=== PATIENT | male | born 1940 | race Caucasian/White ===

== ENCOUNTER → 2016-07-20 | Outpatient (CLI) | payer OTHER | LOC: BMCIMAGING 08:49 | PROVIDERS: ATTEND Family Medicine | DX: K59.00 Constipation, unspecified (principal) ==

== ENCOUNTER → 2016-09-24 | Outpatient (CLI) | payer OTHER ==
[~2016-09-24] MED LIST: IOPAMIDOL (ISOVUE 370) 100 ML BTL IV ONE
[2016-09-24 11:11] LABS: CREATININE 1.2 mg/dL (0.7-1.3)
== END ==
LOC: FIMAGING 10:33
DX: I77.810 Thoracic aortic ectasia (principal); R05 Cough
CPT/HCPCS: 71275; Q9967

== ENCOUNTER → 2018-03-09 | Outpatient (CLI) | payer OTHER | DX: R13.14 Dysphagia, pharyngoesophageal phase (principal); R68.2 Dry mouth, unspecified | CPT/HCPCS: 74230; 92611; G8996; G8997; G8998 ==

== ENCOUNTER 2018-07-13 23:46 | Emergency (ER) | payer OTHER ==
[2018-07-14] MEDS ORDERED: HYDROmorphONE/DILAUDID 1 MG/ML INJ IVP ONE (00:15)
[2018-07-14] MEDS ORDERED: NS 1,000 ML IV ONE (00:15)
[2018-07-14] MEDS ORDERED: ONDANSETRON 4 MG/2 ML VIAL IVP ONE (00:16)
--- NOTE | 2018-07-14 00:20 | EDPHY ---
H & P Stated Complaint: G-tube placement for ALS, retunrs for post-op pain Time Seen by Provider: 07/14/18 00:06 HPI/ROS: Chief Complaint: Abdominal pain HPI: 77-year-old male with a history of ALS had a G-tube placed at [facility] yesterday. Patient was discharged home this morning. Patient states he is feeling well. This afternoon he felt constipated and had a large bowel movement after a lot of straining. He then developed severe pain around his G- tube site. Pain has persisted. No nausea or vomiting. No relief with oral analgesia. No discharge or bleeding from the site. ROS: 10 systems were reviewed and were negative except those elements noted in the HPI. PMH: ALS Social History: No smoking, no alcohol, no recreational drug use Family History: non-contributory Physical Exam: Gen: Awake, Alert, No Distress HEENT: Nose: no rhinorrhea Eyes: PERRLA, EOMI Mouth: Moist mucosa Neck: Supple, no JVD Chest: nontender, lungs clear to auscultation Heart: S1, S2 normal, no murmur Abd: Soft, GC site intact. Moderate tenderness. There is no erythema or discharge. Sutures are in place. Back: no CVA tenderness, no midline tenderness Ext: no edema, non-tender Skin: no rash Neuro: CN II-XII intact, Sensation grossly intact, Strength 5/5 in bilateral upper and lower extremities - Personal History Current Tetanus/Diphtheria Vaccine: Yes Current Tetanus Diphtheria and Acellular Pertussis (TDAP): Yes - Medical/Surgical History Hx Asthma: No Hx Chronic Respiratory Disease: No Hx Diabetes: No Hx Cardiac Disease: No Hx Renal Disease: No Hx Cirrhosis: No Hx Alcoholism: No Hx HIV/AIDS: No Hx Splenectomy or Spleen Trauma: No Other PMH: ALS, G tube placement - Social History Smoking Status: Never smoked Constitutional: Initial Vital Signs Heart Rate 105 H 07/13/18 23:50 Respiratory Rate 20 07/13/18 23:50 Blood Pressure 118/70 07/13/18 23:50 O2 Sat (%) 91 L 07/13/18 23:50 O2 Delivery Mode Room Air O2 (L/minute) 3 Allergies/Adverse Reactions: morphine [Morphine] Allergy (Intermediate, Verified 07/13/18 23:47) Vomiting CATS Allergy (Intermediate, Uncoded 07/13/18 23:47) Other-Enter Comments DUST Allergy (Intermediate, Uncoded 07/13/18 23:47) Other-Enter Comments Home Medications: Medication Instructions Recorded Lisinopril 07/13/18 Riluzole 07/13/18 Wellbutrin Xl 07/13/18 Medical Decision Making - Diagnostics Imaging Results: IMPRESSION: 1. Large volume of free intraperitoneal air related to recent gastrostomy tube placement. Percutaneous gastrostomy tube is in satisfactory position. 2. Diverticulosis. 3. Large volume of retained stool. ELECTRONICALLY SIGNED BY: Kaitlynn Tarango MD Jul 14, 2018 2:10:30 AM MDT ED Course/Re-evaluation: 77-year-old male with abdominal pain status post G-tube placement [address] scan reveals large amount of intraperitoneal air. Mild leukocytosis with left shift. Afebrile. Patient is seen by Dr. Hood Kearney, general surgery. He would like to give the patient IV antibiotics here and reassess in a few hours. Patient has been admitted to Dr. Kearney service. Patient's been reviewed by Dr. Kearney. Patient's pain is a is resolving is comfortable. No fevers other indications of infections. Will continue on on Levaquin at Dr. Kearney request. Follow up with Dr. Kearney or his doctor on Tuesday , return for any concerns. - Data Points Laboratory Results: Laboratory Results 07/14/18 00:28 07/14/18 00:28 07/14/18 07/14/18 07/14/18 00:44 00:28 00:28 WBC 11.84 10^3/uL H 10^3/uL (3.80-9.50) RBC 4.35 10^6/uL L 10^6/uL (4.40-6.38) Hgb 13.7 g/dL g/dL (13.7-17.5) POC Hgb 14.3 gm/dL gm/dL (13.7-17.5) Hct 40.4 % % (40.0-51.0) POC Hct 42 % % (40-51) MCV 92.9 fL fL (81.5-99.8) MCH 31.5 pg pg (27.9-34.1) MCHC 33.9 g/dL g/dL (32.4-36.7) RDW 12.5 % % (11.5-15.2) Plt Count 193 10^3/uL 10^3/uL (150-400) MPV 9.2 fL fL (8.7-11.7) Neut % (Auto) 87.7 % H % (39.3-74.2) Lymph % (Auto) 6.6 % L % (15.0-45.0) [place] % (Auto) 5.0 % % (4.5-13.0) Eos % (Auto) 0.1 % L % (0.6-7.6) Baso % (Auto) 0.2 % L % (0.3-1.7) Nucleat RBC Rel Count 0.0 % % (0.0-0.2) Absolute Neuts (auto) 10.39 10^3/uL H 10^3/uL (1.70-6.50) Absolute Lymphs (auto) 0.78 10^3/uL L 10^3/uL (1.00-3.00) Absolute Monos (auto) 0.59 10^3/uL 10^3/uL (0.30-0.80) Absolute Eos (auto) 0.01 10^3/uL L 10^3/uL (0.03-0.40) Absolute Basos (auto) 0.02 10^3/uL 10^3/uL (0.02-0.10) Absolute Nucleated RBC 0.00 10^3/uL 10^3/uL (0-0.01) Immature Gran % 0.4 % % (0.0-1.1) Immature Gran # 0.05 10^3/uL 10^3/uL (0.00-0.10) POC Sodium 135 mEq/L mEq/L (135-145) Sodium 134 mEq/L L mEq/L (135-145) POC Potassium 4.0 mEq/L mEq/L (3.3-5.0) Potassium 4.5 mEq/L mEq/L (3.5-5.2) POC Chloride 91 mEq/L L mEq/L (97-110) Chloride 93 mEq/L L mEq/L (97-110) Carbon Dioxide 30 mEq/l mEq/l (22-31) POC Total CO2 30 mEq/L mEq/L (22-31) Anion Gap 11 mEq/L mEq/L (6-14) POC BUN 31 mg/dL H mg/dL (7-23) BUN 34 mg/dL H mg/dL (7-23) Creatinine 0.8 mg/dL mg/dL (0.7-1.3) POC Creatinine 0.9 mg/dL mg/dL (0.7-1.3) Estimated GFR > 60 Glucose 171 mg/dL H mg/dL (70-100) POC Glucose 176 mg/dL H mg/dL (70-100) Calcium 9.2 mg/dL mg/dL (8.5-10.4) Medications Given: Discontinued Medications Hydromorphone HCl (Dilaudid) 0.5 mg IVP EDNOW ONE Stop: 07/14/18 00:16 Last Admin: 07/14/18 00:25 Dose: 0.5 mg Sodium Chloride (Ns) 1,000 mls @ 0 mls/hr IV ONCE ONE; Wide Open PRN Reason: Protocol Stop: 07/14/18 00:16 Last Admin: 07/14/18 00:25 Dose: 1,000 mls Cefoxitin Sodium 1 gm/ Sodium (Chloride) 50 mls @ 200 mls/hr IV EDNOW ONE PRN Reason: Protocol Stop: 07/14/18 03:15 Last Admin: 07/14/18 03:29 Dose: 50 mls Ondansetron HCl (Zofran) 4 mg IVP EDNOW ONE Stop: 07/14/18 00:17 Last Admin: 07/14/18 00:24 Dose: 4 mg Point of Care Test Results: Chemistry 07/14/18 00:44 POC Sodium 135 mEq/L mEq/L (135-145) POC Potassium 4.0 mEq/L mEq/L (3.3-5.0) POC Chloride 91 mEq/L L mEq/L (97-110) POC Total CO2 30 mEq/L mEq/L (22-31) POC BUN 31 mg/dL H mg/dL (7-23) POC Creatinine 0.9 mg/dL mg/dL (0.7-1.3) POC Glucose 176 mg/dL H mg/dL (70-100) ISTAT H&H 07/14/18 00:44 POC Hgb 14.3 gm/dL gm/dL (13.7-17.5) POC Hct 42 % % (40-51) Departure - Departure Disposition: [facility] Inpatient Acute Clinical Impression: Abdominal pain Condition: Fair
[2018-07-14] MEDS ORDERED: IOPAMIDOL (ISOVUE-300) 100 ML BTL ONE (00:22)
[2018-07-14 01:09] LABS: PLATELET COUNT 193 10^3/uL (150-400)
[2018-07-14] MEDS ORDERED: cefOXitin SODIUM 1 GM in NS 50 ML IV ONE (03:01)
[2018-07-14] MEDS ORDERED: MOXIFLOXACIN IV ONE (03:15)
[2018-07-14] MEDS ORDERED: SODIUM CHLORIDE IV ONE (03:15)
[2018-07-14 07:42] VITALS: BP 147/97
--- NOTE | 2018-07-14 07:55 | SOAPPROG ---
SOAP Progress Note Assessment/Plan: Assessment: 77 MALE WITH FREE AIR AFTER IR G-TUBE ABD BENIGN, SOFT, ACTIVE BS CT SHOWS TUBE IN PLACE BUT NOT PULLED UP Plan:HOME WITH TUBE SECURED/ FU OUTPT 07/14/18 07:54 Objective: Vital Signs Temp Pulse Resp BP Pulse Ox 36.4 C 92 18 147/97 H 91 L 07/14/18 06:00 07/14/18 07:41 07/14/18 07:41 07/14/18 07:41 07/14/18 07:41 ICD10 Worksheet Patient Problems: Problems Problem Status Onset Abdominal pain Acute
--- NOTE | 2018-07-14 10:47 | GCON ---
[f rep st] CONSULTATION EMERGENCY ROOM CONSULTATION The patient is a 77-year-old male with ALS who was brought to the ER complaining of pain around a rec ently placed G-tube done by Interventional Radiology at the [place] in . He was strainin g for a large bowel movement and then felt pain at the gastrostomy site. He was seen in the ER here with a benign belly but a large amount of free air on his CT scan. CT revealed the tube to be in christiano ce and the stomach adherent to the abdominal wall. No other evidence of other sites of perforation o r problems. CT did show that the balloon was not pulled up against the abdominal wall. REVIEW OF SYSTEMS: Negative except as related to the HPI and the past history. PAST MEDICAL HISTORY: ALS. SOCIAL HISTORY: Reveals he does not smoke. FAMILY HISTORY: Noncontributory. PHYSICAL EXAMINATION: GENERAL: An alert, cooperative but frail 77-year-old male in no acute distres s. He is afebrile. HEAD and NECK: Reveals no icterus or adenopathy. He is PERRLA with EOMs intact . No oral lesions. NECK: Supple with good range of motion. No bruits. CHEST: Clear. CARDIAC: Rev eals a regular rhythm. ABDOMEN: Soft, scaphoid, nontender. Active bowel sounds. No obvious hernia tion and a well-healing G-tube site. EXTREMITIES: Reveal full range of motion, full pulses. NEUROLOGI C: Exam was intact with 5+ strength in both upper and lower extremities. Cranial nerves intact. His speech is somewhat slow. SKIN: Intact with no rashes or lesions. IMPRESSION: Recent G-tube placement, but no obvious complication at this time. The free air may be left over from the procedure or he may have strained and had some air pushed out with his heavy strai pepito. I think that we should observe him on antibiotics and I have reminded him to keep the G-tube p ulled up snugly with the little Silastic flange that is holding the G-tube in place. If he is doing well, we can probably discharge him in the morning and if he is doing worse, he may need a laparoscop y or exploration, but he does not seem to have any signs of peritonitis or problems at this time. /[id number]/MODL
== END 2018-07-14 07:41 | disposition still patient (30) ==
LOC: UNDOADMOB 07-14 03:04
DX: R10.9 Unspecified abdominal pain (principal); K57.30 Diverticulosis of large intestine without perforation or abscess without bleeding; G12.21 Amyotrophic lateral sclerosis; Z93.1 Gastrostomy status
CPT/HCPCS: 74177; 96361; 96365; 96375; 99285; J0694; J1170; J2405; Q9967; 82435-PO; 82565-PO; 82947-PO; 84132-PO; 84295-PO; 84520-PO; 85014-ER; J2280

== ENCOUNTER → 2018-08-30 | Outpatient (CLI) | payer OTHER | LOC: FIMAGING 17:25 | PROVIDERS: ATTEND Internal Medicine Pulmonary Disease | DX: J98.11 Atelectasis (principal); G12.21 Amyotrophic lateral sclerosis ==

== ENCOUNTER 2018-09-01 11:27 | Inpatient (IN) | payer OTHER ==
--- NOTE | 2018-09-01 11:32 | EDPHY ---
H & P Time Seen by Provider: 09/01/18 11:29 - Medical/Surgical History Hx Asthma: No Hx Chronic Respiratory Disease: No Hx Diabetes: No Hx Cardiac Disease: No Hx Renal Disease: No Hx Cirrhosis: No Hx Alcoholism: No Hx HIV/AIDS: No Hx Splenectomy or Spleen Trauma: No Other PMH: ALS, G tube placement - Social History Smoking Status: Never smoked Constitutional: Initial Vital Signs Temperature (C) 36.5 C 09/01/18 11:34 Heart Rate 96 09/01/18 11:34 Respiratory Rate 26 H 09/01/18 11:34 Blood Pressure 112/84 H 09/01/18 11:34 O2 Sat (%) 76 L 09/01/18 11:34 O2 Delivery Mode Hi-Flow Nasal Cannula O2 (L/minute) 30 Allergies/Adverse Reactions: morphine [Morphine] Allergy (Intermediate, Verified 09/01/18 11:30) Vomiting CATS Allergy (Intermediate, Uncoded 07/13/18 23:47) Other-Enter Comments DUST Allergy (Intermediate, Uncoded 07/13/18 23:47) Other-Enter Comments Home Medications: Medication Instructions Recorded Lisinopril 07/13/18 Riluzole 07/13/18 Wellbutrin Xl 07/13/18 Medical Decision Making ED Course/Re-evaluation: CHIEF COMPLAINT: Shortness of breath HISTORY OF PRESENT ILLNESS: The patient is a 77 y/o male who is a DNR (no intubation) with a history of ALS complaining of shortness of breath today. For the last several days the patient has had worsening O2Sats and hypoxemia. He saw his dietitian therapeutic, Dr. Merrill, and had a negative chest x-ray 2 days ago. The patient's symptoms continue to worsen and Dr. Merrill believes that the pulmonary problems could be due to a mucus plug. The patient denies fever, chills, or feeling sick. Due to his unimproved symptoms he was advised to present to the emergency department. No headache, body aches, lightheadedness, chest pain, heart palpitations, shortness of breath, cough, abdominal pain, urinary or bowel complaints, numbness, paresthesias. REVIEW OF SYSTEMS: A 10 point review of systems was performed and is negative with the exception of the elements mentioned in the history of present illness. PHYSICAL EXAM: HR, BP, O2 Sat, RR. Temp noted General Appearance: Cachectic, weak when he speaks, unable to clear secretions , alert, well hydrated, appropriate. Head: Atraumatic without scalp tenderness or obvious injury Eyes: Pupils equal, round, reactive to light and accommodation, EOMI, no trauma , no injection. Ears: Clear bilaterally, no perforation, normal landmarks Nose: Atraumatic, no rhinorrhea, clear. Throat: There is no erythema or exudates, no lesions, normal tonsils, mucus membranes moist. Neck: Supple, 2+ carotid upstroke, nontender, no lymphadenopathy. Respiratory: Tachypneic. No retractions, no wheezes. Cardiovascular: Regular rate and rhythm, no murmurs, rubs, or gallops. Bilateral carotid, radial, dorsalis pedis, and posterior tibial pulses intact. Good capillary refill all extremities. Gastrointestinal: Abdomen is soft, nontender, non-distended, no masses, no rebound, no guarding, no peritoneal signs. Musculoskeletal: Normal active ROM of all extremities, atraumatic. Neurological: Alert, appropriate, and interactive. The patient has normal DTRs and non-focal cranial nerves, motor, sensory, and cerebellar exam. Skin: No rashes, good turgor, no nodules on palpation. Past medical history: ALS Past surgical history: GI tube placement Family history: Denies Social history: at bedside, retired, lives in [place] DIAGNOSTICS/PROCEDURES/CRITICAL CARE TIME: Chest CT: Not performed at time of transfer to the floor. DIFFERENTIAL DIAGNOSIS: The differential diagnosis for the patient's shortness of breath and hypoxemia included but was not limited to pneumonia, myocardial infarction, acute mountain sickness, high altitude pulmonary edema, congestive heart failure, and pulmonary embolus. MEDICAL DECISION MAKING: The patient is a 77 y/o male who is a DNR (no intubation) with a history of ALS presenting with shortness of breath today. For the last several days the patient has had worsening O2Sats and hypoxemia. His dietitian therapeutic, Dr. Merrill , had a negative chest x-ray 2 days ago and would like a chest CT and procalcitonin today. The patient's symptoms continue to worsen and Dr. Merrill believes that the pulmonary problems could be due to a mucus plug. The patient denies fever, chills, or feeling sick. On exam the patient is cachectic, tachypneic, hypoxic with O2Sats of 78% while on 6L supplemental O2. He also is weak when he speaks and has secretions that he can't clear. Chest CT and labs ordered. I will also get respiratory therapy down to the emergency department. Patient and his are comfortable with plan for admission. 1157: I consulted with the hospitalist service, Dr. Lucero accepts admission of this patient. 1207: I spoke with RT who reports that the patient is doing will with 30L supplemental O2. 1300: Patient is being moved to the floor, the chest CT will be performed on the floor. - Data Points Laboratory Results: Laboratory Results 09/01/18 11:45 09/01/18 11:45 09/01/18 09/01/18 09/01/18 11:45 11:45 11:45 WBC 5.82 10^3/uL 10^3/uL (3.80-9.50) RBC 4.20 10^6/uL L 10^6/uL (4.40-6.38) Hgb 13.1 g/dL L g/dL (13.7-17.5) Hct 40.4 % % (40.0-51.0) MCV 96.2 fL fL (81.5-99.8) MCH 31.2 pg pg (27.9-34.1) MCHC 32.4 g/dL g/dL (32.4-36.7) RDW 12.8 % % (11.5-15.2) Plt Count 156 10^3/uL 10^3/uL (150-400) MPV 9.3 fL fL (8.7-11.7) Neut % (Auto) 77.3 % H % (39.3-74.2) Lymph % (Auto) 10.1 % L % (15.0-45.0) [place] % (Auto) 10.0 % % (4.5-13.0) Eos % (Auto) 2.2 % % (0.6-7.6) Baso % (Auto) 0.2 % L % (0.3-1.7) Nucleat RBC Rel Count 0.0 % % (0.0-0.2) Absolute Neuts (auto) 4.50 10^3/uL 10^3/uL (1.70-6.50) Absolute Lymphs (auto) 0.59 10^3/uL L 10^3/uL (1.00-3.00) Absolute Monos (auto) 0.58 10^3/uL 10^3/uL (0.30-0.80) Absolute Eos (auto) 0.13 10^3/uL 10^3/uL (0.03-0.40) Absolute Basos (auto) 0.01 10^3/uL L 10^3/uL (0.02-0.10) Absolute Nucleated RBC 0.00 10^3/uL 10^3/uL (0-0.01) Immature Gran % 0.2 % % (0.0-1.1) Immature Gran # 0.01 10^3/uL 10^3/uL (0.00-0.10) RBC/WBC/PLT Morphology TNP Platelet Estimate TNP PT 14.7 SEC SEC (12.0-15.0) INR 1.20 H (0.83-1.16) APTT 42.4 SEC H SEC (23.0-38.0) VBG Lactic Acid 0.7 mmol/L mmol/L (0.7-2.1) Sodium Potassium Chloride Carbon Dioxide Anion Gap BUN Creatinine Estimated GFR Glucose Calcium Total Bilirubin Procalcitonin 09/01/18 11:45 WBC RBC Hgb Hct MCV MCH MCHC RDW Plt Count MPV Neut % (Auto) Lymph % (Auto) [place] % (Auto) Eos % (Auto) Baso % (Auto) Nucleat RBC Rel Count Absolute Neuts (auto) Absolute Lymphs (auto) Absolute Monos (auto) Absolute Eos (auto) Absolute Basos (auto) Absolute Nucleated RBC Immature Gran % Immature Gran # RBC/WBC/PLT Morphology Platelet Estimate PT INR APTT VBG Lactic Acid Sodium 134 mEq/L L mEq/L (135-145) Potassium 4.6 mEq/L mEq/L (3.5-5.2) Chloride 96 mEq/L L mEq/L (97-110) Carbon Dioxide 33 mEq/l H mEq/l (22-31) Anion Gap 5 mEq/L L mEq/L (6-14) BUN 31 mg/dL H mg/dL (7-23) Creatinine 0.6 mg/dL L mg/dL (0.7-1.3) Estimated GFR > 60 Glucose 100 mg/dL mg/dL (70-100) Calcium 8.8 mg/dL mg/dL (8.5-10.4) Total Bilirubin 0.5 mg/dL mg/dL (0.1-1.4) Procalcitonin 0.64 ng/mL H ng/mL (0.02-0.10) Departure - Departure Disposition: [facility] Inpatient Acute Clinical Impression: Hypoxemia, ALS (amyotrophic lateral sclerosis) Condition: Fair Referrals: ANDREY GAGNON MD [Primary Care Provider] - As per Instructions Report Scribed for: Hector Salcedo Report Scribed by: Radha Camejo Date of Report: 09/01/18 Time of Report: 11:32
[2018-09-01] MEDS ORDERED: ALBUTEROL 3 ML DEYVIAL ONE (11:42)
[2018-09-01 12:02] LABS: PLATELET COUNT 156 10^3/uL (150-400)
[2018-09-01 12:12] LABS: INR 1.2 (0.83-1.16); PROTIME(PATIENT) 14.7 SEC (12.0-15.0)
[2018-09-01] MEDS ORDERED: ONDANSETRON 4 MG/2 ML VIAL IVP PRN (15:19)
[2018-09-01] MEDS ORDERED: ALBUTEROL 3 ML DEYVIAL IH PRN (15:19)
[2018-09-01] MEDS ORDERED: ONDANSETRON DISINTEGRATING 4 MG TAB PO PRN (15:19)
[2018-09-01] MEDS ORDERED: ACETAMINOPHEN 325 MG TAB PO PRN (15:19)
--- NOTE | 2018-09-01 15:26 | PDGENHP ---
History and Physical - Chief Complaint sob - History of Present Illness The patient is a 77 y/o male who is a DNR (no intubation) with a history of ALS complaining of shortness of breath today. For the last several days the patient has had worsening O2Sats and hypoxemia. He saw his hat and cap drying room attendant, Dr. Merrill, and had a negative chest x-ray 2 days ago. Due to worsening SOB, he was sent to the ER by Dr. Merrill. The patient denies fever, chills, or feeling sick. Due to his unimproved symptoms he was advised to present to the emergency department. No headache, body aches, lightheadedness, chest pain, heart palpitations, shortness of breath, cough, abdominal pain, urinary or bowel complaints, numbness, paresthesias. He is noted to test positive for Parainfluenza 3 He does not have a fever There is no Leukocytosis PC is mildly elevated He was given bronchodilator in the ER with some improvement An ABG was done and indicative of likely chronic retention He is currently on 40 L of supplemental O2. He did not tolerated dropping down. He did not want to do BiPAP but is open to this if needed. He is a DNR/DNI Past medical history: ALS Past surgical history: GI tube placement Family history: Denies Social history: retired, lives in [place], History Information - Allergies/Home Medication List Allergies/Adverse Reactions: morphine [Morphine] Allergy (Intermediate, Verified 09/01/18 11:30) Vomiting CATS Allergy (Intermediate, Uncoded 07/13/18 23:47) Other-Enter Comments DUST Allergy (Intermediate, Uncoded 07/13/18 23:47) Other-Enter Comments Home Medications: Lisinopril [Zestril 40 mg (*)] 40 mg PO DAILY 07/13/18 [Last Taken 09/01/18] Riluzole [Rilutek] 50 mg PO BID 07/13/18 [Last Taken 08/31/18] buPROPion XL [Wellbutrin Xl] 150 mg PO DAILY 07/13/18 [Last Taken 08/31/18] Edaravone [Radicava] 30 mg IV DAILY 09/01/18 [Last Taken 08/31/18] amLODIPine BESYLATE [Norvasc 10 mg (*)] 10 mg PO DAILY 09/01/18 [Last Taken 01/11] I have personally reviewed and updated: medical history, social history - Social History Smoking Status: Never smoked Review of Systems Review of Systems: ROS: 10pt was reviewed & negative except for what was stated in HPI & below Physical Exam Physical Exam: Temp Pulse Resp BP Pulse Ox 36.7 C 103 H 21 H 128/73 H 87 L 09/01/18 13:34 09/01/18 13:34 09/01/18 13:34 09/01/18 13:34 09/01/18 13:34 O2 (L/minute) 30 FIO2 (%) 100 Constitutional: no apparent distress, chronically ill appearing Eyes: PERRL, EOMI Ears, Nose, Mouth, Throat: moist mucous membranes, hearing normal Cardiovascular: regular rate and rhythym, No edema Respiratory: reduced air movement, respiratory distress, No no respiratory distress, No expiratory wheeze Gastrointestinal: normoactive bowel sounds, soft, non-tender abdomen Skin: warm Musculoskeletal: generalized weakness Neurologic: AAOx3 Psychiatric: interacting appropriately, not anxious, not encephalopathic Lymph, Heme, Immunologic: No petechiae Lab Data & Imaging Review 09/01/18 11:45 09/01/18 11:45 WBC 5.82 10^3/uL (3.80-9.50) 09/01/18 11:45 RBC 4.20 10^6/uL (4.40-6.38) L 09/01/18 11:45 Hgb 13.1 g/dL (13.7-17.5) L 09/01/18 11:45 Hct 40.4 % (40.0-51.0) 09/01/18 11:45 MCV 96.2 fL (81.5-99.8) 09/01/18 11:45 MCH 31.2 pg (27.9-34.1) 09/01/18 11:45 MCHC 32.4 g/dL (32.4-36.7) 09/01/18 11:45 RDW 12.8 % (11.5-15.2) 09/01/18 11:45 Plt Count 156 10^3/uL (150-400) 09/01/18 11:45 MPV 9.3 fL (8.7-11.7) 09/01/18 11:45 Neut % (Auto) 77.3 % (39.3-74.2) H 09/01/18 11:45 Lymph % (Auto) 10.1 % (15.0-45.0) L 09/01/18 11:45 [place] % (Auto) 10.0 % (4.5-13.0) 09/01/18 11:45 Eos % (Auto) 2.2 % (0.6-7.6) 09/01/18 11:45 Baso % (Auto) 0.2 % (0.3-1.7) L 09/01/18 11:45 Nucleat RBC Rel Count 0.0 % (0.0-0.2) 09/01/18 11:45 Absolute Neuts (auto) 4.50 10^3/uL (1.70-6.50) 09/01/18 11:45 Absolute Lymphs (auto) 0.59 10^3/uL (1.00-3.00) L 09/01/18 11:45 Absolute Monos (auto) 0.58 10^3/uL (0.30-0.80) 09/01/18 11:45 Absolute Eos (auto) 0.13 10^3/uL (0.03-0.40) 09/01/18 11:45 Absolute Basos (auto) 0.01 10^3/uL (0.02-0.10) L 09/01/18 11:45 Absolute Nucleated RBC 0.00 10^3/uL (0-0.01) 09/01/18 11:45 Immature Gran % 0.2 % (0.0-1.1) 09/01/18 11:45 Immature Gran # 0.01 10^3/uL (0.00-0.10) 09/01/18 11:45 RBC/WBC/PLT Morphology TNP 09/01/18 11:45 Platelet Estimate TNP 09/01/18 11:45 PT 14.7 SEC (12.0-15.0) 09/01/18 11:45 INR 1.20 (0.83-1.16) H 09/01/18 11:45 APTT 42.4 SEC (23.0-38.0) H 09/01/18 11:45 Puncture Site RIGHT RADIAL 09/01/18 14:20 Patient Temperature 37.0 DEGREES 09/01/18 14:20 pCO2 58 mmHg (34-38) H 09/01/18 14:20 pO2 48 mmHg (65-75) L 09/01/18 14:20 Total CO2 34 mEq/L (23-27) H 09/01/18 14:20 ABG pH 7.36 (7.35-7.45) 09/01/18 14:20 ABG HCO3 32 mEq/L (22-26) H 09/01/18 14:20 ABG O2 Saturation 81 % (92-95) L 09/01/18 14:20 ABG Base Excess 5.3 mEq/L (-2.5-2.5) H 09/01/18 14:20 VBG Lactic Acid 0.7 mmol/L (0.7-2.1) 09/01/18 11:45 Total O2 Concentration 40.0 LITERS 09/01/18 14:20 O2 Concentration % 100 % (0-100) 09/01/18 14:20 Sodium 134 mEq/L (135-145) L 09/01/18 11:45 Potassium 4.6 mEq/L (3.5-5.2) 09/01/18 11:45 Chloride 96 mEq/L (97-110) L 09/01/18 11:45 Carbon Dioxide 33 mEq/l (22-31) H 09/01/18 11:45 Anion Gap 5 mEq/L (6-14) L 09/01/18 11:45 BUN 31 mg/dL (7-23) H 09/01/18 11:45 Creatinine 0.6 mg/dL (0.7-1.3) L 09/01/18 11:45 Estimated GFR > 60 09/01/18 11:45 Glucose 100 mg/dL (70-100) 09/01/18 11:45 Calcium 8.8 mg/dL (8.5-10.4) 09/01/18 11:45 Total Bilirubin 0.5 mg/dL (0.1-1.4) 09/01/18 11:45 Procalcitonin 0.64 ng/mL (0.02-0.10) H 09/01/18 11:45 Assessment & Plan Assessment: #Acute Hypoxic Respiratory Failure #Para Influenza 3, likely acute bronchitis #ALS #Dysphagia and Tube feeds via G-tube #Depression, chronic, on Wellbutrin #HTN, on Amlodipine and Lisinopril as an outpatient Plan: -Bronchodilator and supportive care -He is on 40 Liters currently. If worsens, he is agreeable to BiPAP -DNR/DNI noted -D/W pulm. -Home meds as appropriate -Will hold BP meds currently, BP ok -DVT proph -Step Down Unit total critical care time is 50 mins
[2018-09-01] MEDS ORDERED: LIDOCAINE 1% 300 MG/30 ML SDV MISC ONE (16:05)
--- NOTE | 2018-09-01 16:33 | PDMN ---
Medical Necessity Medical necessity: Pt meets inpt criteri per MD order and Pulmonary Disease GRG , likely acute bronchitis due to parainfluenza virus. 77 y/o w/hx of ALS, GI tube placement, and dysphagia presents w/increasing SOB, hypoxemic w/worsening O2 sats (78 % on 6 L O2), tachypneic, currently requiring 40 L of supplemental O2, may require BiPap, chest CT shows new mucous plugging in bilat lower lobes, near consolidation and partial collapse of RLL, SDU care, anticipate>2MN for ongoing management of above.
[2018-09-01] MEDS ORDERED: MIDAZOLAM 2 MG/2 ML VIAL ONE (16:34)
[2018-09-01] MEDS ORDERED: MIDAZOLAM 2 MG/2 ML VIAL IVP ONE (16:45)
--- NOTE | 2018-09-01 16:53 | GHP ---
[f rep st] HISTORY AND PHYSICAL DATE OF ADMISSION: 09/01/2018 REFERRING PHYSICIAN: Martín Lucero MD Pulmonary/Critical Care Consultation REASON FOR REFERRAL: Evaluation and management of respiratory failure with pneumonia. HISTORY: The patient is a 77-year-old male with a history of ALS diagnosed late last year. He has h ad primarily bulbar symptoms. He was seen by Dr. Merrill because of symptoms of shortness of breath . He qualified for a BiPAP AVAPS, and that was just set up yesterday. He was seen by Dr. Merrill t he day before due to increasing shortness of breath, as well as low oxygen levels and increased andrews rgy. He denies any cough, fevers, or chills. He refused emergency department evaluation at that [facility], but his symptoms worsened, so he presented to the emergency department where he continued to deny fevers or chills. He feels some congestion, but is unable to clear secretions. PAST MEDICAL HISTORY: 1. ALS. This was diagnosed in March 2018. He had a PEG tube placed in June. 2. He is DNI. 3. Hypertension. MEDICATIONS: At the time of admission include: Bupropion, rilutek, lisinopril, amlodipine and Edara vone. ALLERGIES: Morphine. SOCIAL HISTORY: The patient has never smoked. 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 FAMILY HISTORY: Unremarkable. REVIEW OF SYSTEMS: A 10-point review of systems adds nothing to the history of present illness. PHYSICAL EXAMINATION: GENERAL: The patient is awake and alert. He is in no acute distress. VITAL SIGNS: His blood pressure is 128/73 with a heart rate of 103. He is afebrile. Oxygen saturations a re 87% to 94% on 30% high-flow oxygen. HEENT: He has muscle wasting and some tongue fasciculations. NECK: No adenopathy. Trachea is midline. CHEST: He has decreased breath sounds in the bases, wi th some rales in the left base. CARDIAC: Regular tachycardia without murmur. ABDOMEN: Soft and no ntender. Bowel sounds are present. PEG tube is in position. EXTREMITIES: No clubbing, cyanosis, o r edema. NEURO: The patient has diffuse muscle weakness and hypophonia with dysarthria. LABORATORY: Hemoglobin is 13.1 with a white blood count of 5.8. Sodium is 134, BUN is 31 with a cre atinine of 0.6. Procalcitonin is 0.6. Carbon dioxide level is 33. An arterial blood gas shows a pH of 7.36 with a pO2 of 48, a CO2 of 58, a bicarbonate of 32 on 100% oxygen. A CT scan of the chest s hows extensive consolidation and mucus plugging in the right lower lobe, with some infiltrate in the posterior basilar left lower lobe. Images reviewed by me. A respiratory panel was positive for parainfluenza virus. ASSESSMENT: 1. Bronchopneumonia. This is likely due to parainfluenza virus. The patient has significant mucous plugging as a result of a weak cough from his amyotrophic lateral sclerosis. 2. Acute hypoxemic respiratory failure. This is due to the parainfluenza virus with retained mucus plugs and extensive consolidation/atelectasis in the right more so than the left base. 3. Hypercapnic respiratory failure. The patient's CO2 was 41 five weeks ago. There is likely acute and chronic component to his hypercapnic respiratory failure. Some of this may be reversible with t reatment of the pneumonia, although some of it may not be. AVAPS was ordered and arrived yesterday, but he has not yet started it. It is possible this could help with his hypercapnia. 4. Amyotrophic lateral sclerosis. RECOMMENDATIONS: 1. I recommended that we consider bronchoscopy to try to help clear secretions. It is likely this w ould need to be done repeatedly because of the patient's very weak cough and the likelihood that he w ould continue to have purulent mucus plugs for a while during his recovery. 2. Start empiric antibiotics for possible bacterial superinfection of the parainfluenza virus. 3. Start AVAPS. 4. Follow chest x-rays. 5. CPT with vibrating vest to try to help clear secretions. We will also start Mucomyst. 6. I discussed with the patient and his that it is possible this could potentially be a termina l event given his very weak cough with poor secretion clearance and elevated CO2. They are consideri ng right now whether they want to proceed with bronchoscopy, but would like to try AVAPS. /[id number]/MODL
[2018-09-01] MEDS: IPRATROPIUM/ALBUTEROL 3 ML DEYVIAL IH SCH ×2 (17:19→22:55)
--- NOTE | 2018-09-01 17:39 | GPN ---
[f rep st] PROCEDURE NOTE DATE OF PROCEDURE: 09/01/2018 PROCEDURE: Flexible fiberoptic bronchoscopy. REASON FOR THE PROCEDURE: Retained secretions with hypoxemic respiratory failure. PROCEDURE NOTE: The risks and benefits of the procedure were explained to the patient and his , who agreed to proceed. The entire procedure was performed in the intensive care unit with the patien t under blood pressure, EKG, and oximetry monitoring. It was my assessment that there was no risk of airborne infection from the procedure. After an appropriate time-out, a bite block was placed betwe en the patient's teeth and the bronchoscope was advanced through the bite block into the vocal cords. 4 cc of 1% lidocaine was used topically on the airways for anesthesia. The bronchoscope was advanc ed through the vocal cords into the main trachea, which was clear of secretions. I proceeded directl y to the right-sided airways, where I encountered a moderate amount of mucopurulent secretions from t he right lower lobe. These were easily suctioned and the airways were quickly widely patent. I then examined all the other airways and removed a small amount of mucopurulent secretions. I then return ed to the right lower lobe, where a small volume lavage was performed with return of slightly cloudy fluid. All airways were patent at the end of the procedure. The patient received 2 mg of Versed int ravenously for sedation. A specimen will be sent for Gram stain and culture. There was no blood los s or other complications with the exception of hypoxemia, with oxygen saturations in the low 80s, whi ch improved shortly after the end of the procedure, when the patient was placed on BiPAP. /[id number]/MODL
[2018-09-01] MEDS ORDERED: ACETYLCYSTEINE 20% IH/PO 4 ML VIAL IH SCH (18:00)
[2018-09-01] MEDS: AMPICILLIN/SULBACTAM 3 GM in NS 100 ML IV SCH (18:20)
[2018-09-01] MEDS: (Riluzole [Rilutek] 50 MG) PO SCH (19:48)
[2018-09-01] MEDS ORDERED: LORazepam 2 MG/ML INJ IVP ONE (22:55)
[2018-09-02] MEDS: AMPICILLIN/SULBACTAM 3 GM in NS 100 ML IV SCH ×3 (00:12→12:16)
[2018-09-02] MEDS ORDERED: LORazepam 2 MG/ML INJ IVP ONE (02:48)
[2018-09-02] MEDS: IPRATROPIUM/ALBUTEROL 3 ML DEYVIAL IH SCH ×3 (04:02→15:48)
[2018-09-02] MEDS ORDERED: LIDOCAINE 2% JELLY 20 ML (UROJECT) ONE (04:33)
[2018-09-02] MEDS ORDERED: LIDOCAINE 1% 300 MG/30 ML SDV ONE (04:52)
[2018-09-02 04:55] LABS: PLATELET COUNT 161 10^3/uL (150-400)
--- NOTE | 2018-09-02 05:40 | GOP ---
[f rep st] OPERATIVE REPORT DATE OF OPERATION: 09/02/2018 SURGEON: Liset Cortes MD ANESTHESIA: Local. 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 PROCEDURE PERFORMED: Percutaneous suprapubic tube insertion. FINDINGS: DESCRIPTION OF PROCEDURE: The patient was at the bedside. He was prepped and draped in sterile fash ion with Hibiclens. Lidocaine was infused in and around the patient's skin and using an approximatel y 2-inch long needle infusing the subcutaneous tissue, I was able to aspirate urine. An 11-blade kni fe was used to incise the skin and fascia, and then the Cook suprapubic tube was passed with trocar i nto the patient's bladder. The bladder was palpated. The catheter was passed the head of the trocar and felt to curl. Trocar was removed. Urine then came from the catheter and was clear yellow. The preoperative bladder scan showed greater than 500 cc, but at the time of this dictation, only reba roximately 200 cc had been drained from the bladder. It was clear yellow, and no evidence of blood o r cloudiness. The patient tolerated the procedure well. The catheter was secured with a 2-0 silk gregory ture and bandaged. COMPLICATIONS: None. DRAINS: A 14-Khmer Cook suprapubic tube. /[id number]/MODL
--- NOTE | 2018-09-02 05:45 | GCON ---
[f rep st] CONSULTATION UROLOGY CONSULTATION DATE OF CONSULTATION: 09/02/2018 REASON FOR CONSULTATION: Urinary retention, inability for nursing staff to place catheter. HISTORY OF PRESENT ILLNESS: This is a 77-year-old man with a history of ALS, who is admitted for res piratory compromise. He is in the intensive care unit. Accurate measurements of output are required . The patient is not voiding and there is suprapubic fullness. The nursing staff tried catheterizat ions with a straight catheter twice and a coude catheter, with minimum size 15-Eritrean of significance . The patient has history of a radical prostatectomy, and therefore very well may have a bladder nec k contracture. The patient is very thin and the bladder seems palpable. That in combination with the fact that if I was to dilate the patient's bladder neck contracture blindly that could increase the risk of urinary incontinence once he recovers. Therefore, I felt the safest thing to do was perform a suprapubic tu be. The patient gave his verbal consent. PHYSICAL EXAM: GENERAL: He is a patient in the ICU, elderly, very trim. GENITOURINARY: He has wha t seems to be a palpable bladder on examination. He has a normal male phallus and meatus. Normal sc rotum. EXTREMITIES: Nontender. 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 PLAN: Suprapubic tube insertion. /[id number]/MODL
[2018-09-02] MEDS ORDERED: buPROPion XL 150 MG TAB PO SCH (09:00)
[2018-09-02] MEDS ORDERED: ENOXAPARIN 40 MG/0.4 ML SYR SC SCH (09:00)
--- NOTE | 2018-09-02 12:14 | HOSPPROG ---
Hospitalist Progress Note Assessment/Plan: #Acute Hypoxic Respiratory Failure #Para Influenza 3 #Bronchopneumonia #ALS #Dysphagia and Tube feeds via G-tube #Depression, chronic, on Wellbutrin #HTN, on Amlodipine and Lisinopril as an outpatient, holding currently, BP is appropriate #Urinary retention, possible due to bladder neck contracture, s/p suprapubic catheter placement on 09/02 Plan: -BiPAP, respiratory support as he will allow. I confirmed again today that he is a DNR/DNI -Bronchodilator -Empiric Abx -Discussed with ID, there are no roles for antivirals with Para Influenza 3 -Start tube feeds, this was discussed with Dietary -suprapubic catheter -DVT proph -Step Down Unit -DNR/DNI Prognosis is poor. Family is aware total critical care time is 35 mins Subjective: on BiPAP. appears comfortable Objective: Vital Signs Temp Pulse Resp BP Pulse Ox 36.8 C 109 H 21 H 136/95 H 98 09/02/18 07:28 09/02/18 11:38 09/02/18 11:38 09/02/18 07:28 09/02/18 11:38 Microbiology 09/01/18 18:07 - Final Sputum, Induced/Suctioned Laboratory Results 09/02/18 04:45 09/02/18 04:45 09/01/18 09/02/18 09/03/18 05:59 05:59 05:59 Intake Total 985 Output Total 650 Balance 335 PT 14.7 SEC (12.0-15.0) 09/01/18 11:45 INR 1.20 (0.83-1.16) H 09/01/18 11:45 - Physical Exam Constitutional: chronically ill appearing Ears, Nose, Mouth, Throat: moist mucous membranes Cardiovascular: regular rate and rhythym, No edema Respiratory: reduced air movement, respiratory distress Gastrointestinal: normoactive bowel sounds Skin: warm Neurologic: No AAOx3 Psychiatric: interacting appropriately Lymph, Heme, Immunologic: No petechiae ICD10 Worksheet Patient Problems: Problems Problem Status Onset ALS (amyotrophic lateral sclerosis) Acute Hypoxemia Acute Abdominal pain Acute
--- NOTE | 2018-09-02 14:56 | PDINTPN ---
Stain Sprayer Progress Note Assessment/Plan: Assessment: Viral pneumonia: Parainfluenza on PCR testing. Bronch culture with mixed oral rojelio. On Unasyn ALS Hypercapnic respiratory failure primarily due to at ALS, with exacerbation related to his acute pneumonia. His CO2 continues to rise and pH is lower despite the use of AVAPS. Plan: Continue Unasyn and AVAPS. Try to increase AVAPS target [place] Discussed with . I think it's unlikely that he will survive this pneumonia with respiratory compromise from ALS without intubation, and he has expressed a wish to be DNI. She would like to see if it would be possible to get him home with his home AVAPS. Will discuss with discharge planning and get a palliative care consult. 09/02/18 14:56 09/02/18 15:12 Subjective: Somnolent but arousable. Objective: Vital Signs Temp Pulse Resp BP Pulse Ox 36.8 C 108 H 24 H 126/71 H 95 09/02/18 12:00 09/02/18 12:00 09/02/18 12:00 09/02/18 12:00 09/02/18 12:00 Microbiology 09/01/18 18:07 - Final Sputum, Induced/Suctioned Laboratory Results 09/02/18 04:45 09/02/18 04:45 09/01/18 09/02/18 09/03/18 05:59 05:59 05:59 Intake Total 985 Output Total 650 Balance 335 PT 14.7 SEC (12.0-15.0) 09/01/18 11:45 INR 1.20 (0.83-1.16) H 09/01/18 11:45 Chest x-ray: Persistent right lower lobe infiltrate, but not as dense as suggested by CT scan. Images reviewed by me. Laboratory Tests 09/01/18 09/02/18 14:20 14:20 pCO2 58 H 75 H* pO2 48 L 74 Total CO2 34 H 36 H ABG pH 7.36 7.27 L ABG HCO3 32 H 34 H Total O2 Concentration 40.0 O2 Concentration % 100 80 Expiratory Pressure 5 Inspiratory Pressure 15 Mode BiPAP YES Microbiology 09/01/18 18:07 Sputum, Induced/Suctioned - MOF 09/01/18 18:07 Sputum, Induced/Suctioned Sputum Culture - Preliminary Physical Exam - Physical Exam General Appearance: no apparent distress, No alert (somnolent but arousable) EENT: normal ENT inspection Neck: normal inspection Respiratory: crackles (right) Cardiac/Chest: regular rate, rhythm, No edema Abdomen: normal bowel sounds, non-tender Skin: normal color, warm/dry Extremities: normal inspection Neuro/Psych: oriented x 3, motor weakness, No alert ICD10 Worksheet Patient Problems: Problems Problem Status Onset ALS (amyotrophic lateral sclerosis) Acute Hypoxemia Acute Abdominal pain Acute
[2018-09-02] MEDS: (Riluzole [Rilutek] 50 MG) PO SCH (15:01)
--- NOTE | 2018-09-02 15:54 | ASMTCMCOM ---
CM Note CM Note Notes: CM received a call from . Family is wanting to take pt home. Condition is serious. There is a DNR. CM reached out to Hospice. Referrals are in [employer]. [facility]waiting [facility] to come see pt. reports that she has MPOD but copy not in person. CM to follow for needs. Plan: TBD Home with Hospice Date Signed: 09/02/2018 03:53 PM Electronically Signed By:Aisha Ray
[2018-09-02 16:09] VITALS: BP 109/69
--- NOTE | 2018-09-02 18:01 | PDIAF ---
- Diagnosis Diagnosis: als, respiratory failure Code Status: Do Not Resuscitate - Medication Management Discharge Medications: electronically signed and located in the Home Medication List. - Orders Services needed: Home Care, Registered Nurse Home Care Face to Face: I certify that this patient was under my care and that I had the required [id number] encounter meeting the encounter requirements on the discharge day. My findings support the fact that the patient is homebound as defined in Home Care Face to Face Continued: CMS Chapter 7 Medicare Benefits Manual 30.1.1 , The condition of the patient is such that there exists a normal inability to leave home and consequently, leaving home would require a considerable and taxing effort. Isolation Type: Droplet Isolation Diet Recommendation: no restrictions on diet Diet Texture: Regular Texture Diet Additional Instructions: activity: as tolerated - Follow Up Care Current Providers and Referrals: ANDREY GAGNON MD [Primary Care Provider] - As per Instructions
--- NOTE | 2018-09-02 18:06 | PDDCSUM ---
Discharge Summary Discharge Summary: Mr Kearney was admitted with acute hypoxic resp failure due to para influenza and broncho pneumonia. He has a hx of advanced ALS. He is a DNR/DNI and this was confirmed multiple times during this admission. He was admitted. BiPAP, bronchodilators, Resp therapy, and empiric abx were started. He had Bronchoscopy performed. Unfortunately his condition worsen and his and his family wishes to not intubate were honored. Hospice has been chosen and he is being d/c home with hospice care. DDX: #Acute Hypoxic Respiratory Failure #Para Influenza 3 #Bronchopneumonia #ALS #Dysphagia and Tube feeds via G-tube #Depression, chronic, on Wellbutrin #HTN #Urinary retention, possible due to bladder neck contracture, s/p suprapubic catheter placement on 09/02 Meds: see med rec total time spent on d/c is 40 mins
--- NOTE | 2018-09-02 18:14 | ASMTLACE ---
LACE Length of stay for Answers: 1 day current admission Acuity / Level of Answers: Yes Care: Did the patient have an inpatient admission? Comorbidities - select Answers: Other Notes: ALS all that apply # of Emergency department Answers: 1-2 visits in the last 6 months Score: 6 Date Signed: 09/02/2018 06:13 PM Electronically Signed By:Diana Stiles RN
--- NOTE | 2018-09-02 18:15 | ASMTDCNOTE ---
Case Management Discharge Discharge Order Complete? Answers: Yes Patient to Obtain Answers: Other Notes: [facility] Transportation Arranged Answers: Family/Friends Case Management Transport Answers: Yes Form Complete Faxed Final Orders Answers: Yes Agency/Facility Transfer Answers: Yes Report Printed & Faxed to Receiving Agency Family Notified Answers: Yes Discharge Comments Notes: Patient to dc to home with [facility] this pm. [facility] to [facility] within the hour. Final orders via [email or web address]. Date Signed: 09/02/2018 06:15 PM Electronically Signed By:Diana Stiles RN
[2018-09-02] MEDS ORDERED: (Riluzole [Rilutek] 50 MG) PO SCH (19:00)
== END 2018-09-02 18:53 | disposition hospice, home (50) | DRG 166 ==
LOC: F2N 13:38
PROVIDERS: ADMIT Family Medicine; ATTEND Family Medicine
PROC: 0B968ZZ Drainage of Right Lower Lobe Bronchus, Via Natural or Artificial Opening Endoscopic (ICD-10-PCS; principal; 2018-09-01)
PROC: 0B9F8ZZ Drainage of Right Lower Lung Lobe, Via Natural or Artificial Opening Endoscopic (ICD-10-PCS; principal; 2018-09-01)
PROC: 0T9B30Z Drainage of Bladder with Drainage Device, Percutaneous Approach (ICD-10-PCS; 2018-09-02)
DX: J12.2 Parainfluenza virus pneumonia (principal); J96.01 Acute respiratory failure with hypoxia; G12.21 Amyotrophic lateral sclerosis; Z66 Do not resuscitate; R13.10 Dysphagia, unspecified; F32.9 Major depressive disorder, single episode, unspecified; I10 Essential (primary) hypertension; R33.9 Retention of urine, unspecified; Z93.1 Gastrostomy status; Z90.79 Acquired absence of other genital organ(s)
CPT/HCPCS: C2627; J0295; J1650; J2060; J2250; J7613